=== PATIENT | female | born 1995 | race Two or more races ===

== ENCOUNTER 2019-05-20 14:48 | Emergency (ER) | payer OTHER ==
[~2019-05-20] VITALS: Ht 170.2 cm; Wt 60.0 kg
[2019-05-20] MEDS ORDERED: IBUPROFEN 600MG TABLET PO STA (15:39)
[2019-05-20] MEDS ORDERED: BACITRACIN ZINC OINT UDPKT TOP ONE (17:00)
[2019-05-20 17:15] VITALS: BP 113/73
[2019-05-20] MEDS ORDERED: BACITRACIN ZINC OINT UDPKT TOP STA (17:31)
== END 2019-05-20 17:37 | disposition home or self-care (01) ==
LOC: ER 14:48
DX: F43.20 Adjustment disorder, unspecified (principal); M94.0 Chondrocostal junction syndrome [Tietze]; M25.562 Pain in left knee; M25.561 Pain in right knee; S80.212A Abrasion, left knee, initial encounter; S80.211A Abrasion, right knee, initial encounter; Y35.893A Legal intervention involving other specified means, suspect injured, initial encounter; Y93.9 Activity, unspecified; Y92.9 Unspecified place or not applicable
CPT/HCPCS: 71045; 73560; 93005; 99284